=== PATIENT | male | born 1985 | race African-American/Black ===

== ENCOUNTER 2019-06-21 20:44 | Emergency (ER) | payer SELFPAY ==
[~2019-06-21] VITALS: Ht 180.3 cm; Wt 70.5 kg
[2019-06-21] MEDS ORDERED: KETAMINE HCL 50 MG/ML 10 ML VIAL IVP ONE (22:15)
[2019-06-21] MEDS ORDERED: FentaNYL CITRATE-PF 100 MCG/2 ML VIAL IVP ONE (22:30)
[2019-06-22 04:05] VITALS: BP 101/67
== END 2019-06-22 04:21 | disposition home or self-care (01) ==
LOC: EMS 20:44
DX: S83.014A Lateral dislocation of right patella, initial encounter (principal); X50.0XXA Overexertion from strenuous movement or load, initial encounter; Y93.89 Activity, other specified; Y92.89 Other specified places as the place of occurrence of the external cause; Y99.8 Other external cause status
CPT/HCPCS: 27560; 73562 ×2; 99285; J3010; J3490